=== PATIENT | male | born 1980 | race Two or more races ===

== ENCOUNTER 2016-11-02 21:06 | Emergency (ER) | payer OTHER ==
[2016-11-02] MEDS ORDERED: SODIUM CHLORIDE 0.9% 1,000 ML ONE (22:24)
[2016-11-02 23:05] LABS: BASO % 0.8 % (0.2-1.0); EOS # 0.2 (0.0-0.5); EOS % 5.1 % (0.9-2.9); HEMATOCRIT 44.5 % (32.0-52.0); HEMOGLOBIN 14.9 gm/l (14.0-18.0); LYMPH # 1.3 (1.0-4.8); LYMPH % 33.9 % (15-45); MEAN CELL VOLUME 82.6 fl (80.0-94.0); MEAN CORPUSCULAR HEMOGLOBIN 27.6 pg (27.0-31.0); MEAN CORPUSCULAR HGB CONC 33.5 g/dl (33.0-37.0); MEAN PLATELET VOLUME 9.6 fl (7.4-10.4); MONO # 0.4 (0.0-0.8); MONO % 10.4 % (4-12); NEUT % 49.8 % (43-75); PLATELET COUNT 244 K/mm3 (130-400); RED CELL DISTRIBUTION WIDTH 12.5 % (11.5-14.5)
[2016-11-02 23:24] LABS: ALB/GLOB RATIO 1.3 (>1.0); ALBUMIN 3.8 gm/dL (3.5-5.7); CALCIUM 8.8 mg/dL (8.6-10.3)
[2016-11-02 23:27] LABS: C-REACTIVE PROTEIN 1.9 mg/dl (<1.0)
[2016-11-03] MEDS ORDERED: DIPHENHYDRAMINE HCL 50 MG/1 ML VIAL ONE (00:13)
[2016-11-03] MEDS ORDERED: FENTANYL 100 MCG/2 ML VIAL ONE (00:14)
[2016-11-03] MEDS ORDERED: LEVOFLOXACIN 250 MG TABLET ONE (00:52)
--- NOTE | 2016-11-03 08:36 | RAD ---
CHEST 2 VIEWS HISTORY: Diffuse headache and diffuse chest pain. History of sarcoidosis and tuberculosis. Frontal and lateral chest radiographs dated 11/03/2016. COMPARISON: 10/30/2016. FINDINGS: FOCAL AIRSPACE OPACITY: Findings bibasilar scarring with bandlike density on the right, which may reflect fibrotic atelectatic change versus infiltrate. PLEURAL EFFUSION: Small pleural effusions CARDIOMEDIASTINAL SILHOUETTE: Nonenlarged. PNEUMOTHORAX: None identified. OSSEOUS STRUCTURES: No grossly destructive lesions. IMPRESSION: 1. Apparent bibasilar scarring and small pleural effusions. 2. Residual density at the right lung base, infiltrate and fibrotic atelectatic change are possible. If this radiographic finding persists, CT imaging may be helpful for further characterization in the setting of known sarcoidosis.
== END 2016-11-03 02:35 | disposition home or self-care (01) ==
LOC: ED 21:06
DX: J18.9 Pneumonia, unspecified organism (principal); R01.1 Cardiac murmur, unspecified; R51 Headache

== ENCOUNTER 2017-02-06 13:15 | Emergency (ER) | payer OTHER ==
[2017-02-06] MEDS ORDERED: IOPAMIDOL 370 (76%) 100 ML VIAL IV ONE (13:16)
--- NOTE | 2017-02-06 14:06 | RAD ---
CHEST 2 VIEWS HISTORY: Productive cough, purulent sputum. Frontal and lateral chest radiographs dated 02/06/2017. COMPARISON: 11/03/2016 FINDINGS: LUNG VOLUMES: Hyperinflation. FOCAL AIRSPACE OPACITY: Stable density of the lung bases, with scarring at the right lung base. PLEURAL EFFUSION: Small bilateral pleural effusions. CARDIOMEDIASTINAL SILHOUETTE: Nonenlarged. PNEUMOTHORAX: None identified. OSSEOUS STRUCTURES: No grossly destructive lesions. IMPRESSION: Redemonstration of hyperinflation compatible with obstructive pulmonary disease. Redemonstration of small pleural effusions and right basilar scarring. No new airspace consolidation.
[2017-02-06 14:39] LABS: ABSOLUTE NEUTROPHIL COUNT 2.5 K/mm3 (1.8-7.7); BASO % 0.6 % (0.2-1.0); EOS # 0.2 (0.0-0.5); EOS % 4.5 % (0.9-2.9); HEMOGLOBIN 16.2 gm/l (14.0-18.0); LYMPH # 1.4 (1.0-4.8); LYMPH % 29.8 % (15-45); MEAN CELL VOLUME 82.9 fl (80.0-94.0); MEAN CORPUSCULAR HGB CONC 33.8 g/dl (33.0-37.0); MEAN PLATELET VOLUME 9.7 fl (7.4-10.4); MONO # 0.6 (0.0-0.8); MONO % 11.9 % (4-12); NEUT % 53.2 % (43-75); PLATELET COUNT 226 K/mm3 (130-400); RED CELL DISTRIBUTION WIDTH 12.1 % (11.5-14.5)
[2017-02-06 14:53] LABS: ALB/GLOB RATIO 1.5 (>1.0); ALBUMIN 4.1 gm/dL (3.5-5.7); CALCIUM 9.2 mg/dL (8.6-10.3)
--- NOTE | 2017-02-06 16:10 | CT ---
CHEST CT WITH CONTRAST HISTORY: Persistent cough. History of tuberculosis and sarcoidosis.. TECHNIQUE: Following the administration of 80 mL Isovue-370 intravenous contrast, contiguous axial images were acquired from the thoracic inlet to the diaphragmatic hiatus. COMPARISON: Plain films of the same date.. FINDINGS: THORACIC AORTA: Normal caliber. No evidence of dissection. LUNGS: Bilateral basilar scarring versus atelectatic change. No airspace consolidation or cavitary lesion minor bilateral pleural effusion formation.. NOY AND MEDIASTINUM: Calcified subcarinal lymph node, 11 mm in width. Precarinal lymph node measures 10 mm in width. A prevascular lymph node measures 7 mm in width.. Calcified right hilar lymph nodes. MAJOR AIRWAYS: Grossly unremarkable. AXILLAE: No grossly enlarged lymph nodes. UPPER ABDOMEN:No gross mass effect. OSSEOUS STRUCTURES: No grossly destructive lesions. . IMPRESSION: 1. Bibasilar scarring with small pleural effusions, as seen on plain films. No gross airspace consolidation or dominant pulmonary lesion. 2. Mild prominence of hilar and mediastinal lymph nodes, some of which are calcified, compatible with prior granulomatous exposure. Results were electronically transmitted to the electronic medical record at 4 and 17 at 1605 hours.
== END 2017-02-06 16:30 | disposition home or self-care (01) ==
LOC: ED 13:15
DX: R05 Cough (principal); D86.9 Sarcoidosis, unspecified; Z86.11 Personal history of tuberculosis